=== PATIENT | female | born 1955 | race Caucasian/White ===

== ENCOUNTER 2020-05-12 09:59 | Outpatient (CLI) | payer OTHER | END 2020-05-12 10:00 | disposition home or self-care (01) | LOC: CSHCT 09:59 | PROVIDERS: ATTEND Urology | DX: N13.5 Crossing vessel and stricture of ureter without hydronephrosis (principal); N28.9 Disorder of kidney and ureter, unspecified; M79.9 Soft tissue disorder, unspecified | CPT/HCPCS: 74178; 82565 ==